=== PATIENT | female | born 1965 | race Caucasian/White ===

== ENCOUNTER 2024-11-05 06:23 | Day surgery (SDC) | payer OTHER, SELFPAY | END 2024-11-05 10:08 | disposition home or self-care (01) | LOC: GI 06:23 | PROVIDERS: ATTENDING PHYSICIAN Internal Medicine | DX: Z12.11 Encounter for screening for malignant neoplasm of colon (principal); D12.0 Benign neoplasm of cecum; K62.89 Other specified diseases of anus and rectum; K20.90 Esophagitis, unspecified without bleeding; K22.89 Other specified disease of esophagus; K31.7 Polyp of stomach and duodenum; K31.811 Angiodysplasia of stomach and duodenum with bleeding; K31.89 Other diseases of stomach and duodenum; K21.9 Gastro-esophageal reflux disease without esophagitis; R14.0 Abdominal distension (gaseous); Z86.0100 Personal history of colon polyps, unspecified | CPT/HCPCS: 45385; 43255; 43239; 88305; 88342 ==